=== PATIENT | male | born 1950 | race Caucasian/White ===

== ENCOUNTER 2021-07-18 10:59 | Observation (INO) ==
[2021-07-18 13:17] LABS: Basophils % 0.2 %; Hematocrit 47.4 % (37.5-50.1); Hemoglobin 15.7 g/dL (12.9-16.9); Immature Granulocytes % 1.7 % (0-4); Lymphocytes # 0.5 K/mcL (0.6-4.6); Lymphocytes % 13.3 %; Mean Corpuscular HGB Conc 33.1 g/dL (31.6-35.5); Mean Corpuscular Hemoglobin 29.5 pg (28.0-33.3); Mean Corpuscular Volume 89.1 fL (83.0-100.0); Mean Platelet Volume 9.7 fL (9.4-12.4); Monocytes # 0.3 K/mcL (0.0-1.3); Monocytes % 6.2 %; Neutrophils # 3.2 K/mcL (1.6-8.9); Platelet Count 170 K/mcL (140-400); Red Blood Count 5.32 M/mcL (4.19-5.50); Red Cell Distribution Width 13.4 % (11.5-14.5); Segmented Neutrophils % 78.6 %; White Blood Count 4.1 K/mcL (4.3-11.1)
[2021-07-18 13:39] LABS: Alanine Aminotransferase 21 Units/L (7-52); Albumin/Globulin Ratio 1.2 (1.1-2.2); Alkaline Phosphatase 69 Units/L (34-104); Aspartate Amino Transferase 53 Units/L (13-39); BUN/Creatinine Ratio 24 (6-26); Bilirubin,Direct 0.3 mg/dL (0.0-0.2); Bilirubin,Indirect 0.6 mg/dL (0.0-1.0); Bilirubin,Total 0.9 mg/dL (0.3-1.0); Blood Urea Nitrogen 25 mg/dL (8-23); Calcium 9.1 mg/dL (8.6-10.3); Carbon Dioxide 26 mEq/L (23-29); Chloride 93 mEq/L (98-107); Globulin 3.4 g/dL (2.4-3.5); Glucose 182 mg/dL (70-105); Osmolality,Calculated 283 (280-300); Potassium 3.5 mEq/L (3.5-5.1); Sodium 132 mEq/L (136-145); Total Protein 7.4 g/dL (6.4-8.9); Troponin I 0.05 ng/mL (< 0.04); eGFR For African Americans > 60 (> 60); eGFR For Non-African Americans > 60 (> 60)
[2021-07-18 15:34] LABS: Influenza A PCR Negative (Negative); Influenza B PCR Negative (Negative); Resp. Syncytial Virus PCR Negative (Negative)
[2021-07-18 16:00] LABS: SARS-CoV-2 by PCR (In House) Positive (Negative)
[2021-07-18] MEDS ORDERED: Ondansetron 4 MG/2 ML VIAL IVP PRN (17:20)
[2021-07-18] MEDS ORDERED: Naloxone 0.4 MG/ML INJ IVP PRN (17:20)
[2021-07-18] MEDS ORDERED: D5% in Water 1,000 ML IVC PRN (17:23)
[2021-07-18] MEDS ORDERED: *HR* Dextrose 50 % in Water (Syg) 50 ML SYRINGE IVP PRN (17:23)
[2021-07-18] MEDS ORDERED: Dextrose Gel 15 GM/37.5 ML TUBE PO PRN ×2 (17:23)
[2021-07-18] MEDS ORDERED: Remdesivir 200 MG in 0.9 % Sodium Chloride 100 ML IVPB ONE (17:29)
[2021-07-18 18:30] LABS: C-Reactive Protein 101 mg/L (Less than 10); Lactate Dehydrogenase 559 Units/L (140-271)
[2021-07-18 18:48] LABS: Ferritin 532 ng/mL (20-250)
[2021-07-18] MEDS: levoFLOXacin 750 MG/150 ML 750 MG/150 ML BAG IVPB SCH (18:51)
[2021-07-18] MEDS ORDERED: Ipratropium/Albuterol Neb 3 ML IH SCH (20:00)
[2021-07-18] MEDS: Budesonide/Formoterol 160/4.5 1 PUFF INH IH SCH (20:35)
[2021-07-18] MEDS: Ipratropium 1 PUFF INHALER IH SCH (20:36)
[2021-07-18] MEDS ORDERED: Ipratropium 1 PUFF INHALER IH ONE (21:27)
[2021-07-18] MEDS: Insulin LISPRO 300 UNITS/3 ML VIAL SUBQ SCH (22:03)
[2021-07-19 02:14] LABS: Basophils % 0.6 %; Hematocrit 43.1 % (37.5-50.1); Lymphocytes # 0.5 K/mcL (0.6-4.6); Lymphocytes % 15.6 %; Mean Corpuscular HGB Conc 32.3 g/dL (31.6-35.5); Mean Corpuscular Volume 89.8 fL (83.0-100.0); Mean Platelet Volume 10.1 fL (9.4-12.4); Monocytes # 0.2 K/mcL (0.0-1.3); Monocytes % 6.4 %; Neutrophils # 2.4 K/mcL (1.6-8.9); Platelet Count 174 K/mcL (140-400); Red Cell Distribution Width 13.3 % (11.5-14.5); Segmented Neutrophils % 73.4 %; White Blood Count 3.3 K/mcL (4.3-11.1)
[2021-07-19 02:17] LABS: Hemoglobin 13.9 g/dL (12.9-16.9)
[2021-07-19 02:23] LABS: BUN/Creatinine Ratio 33 (6-26); Blood Urea Nitrogen 27 mg/dL (8-23); Calcium 8.1 mg/dL (8.6-10.3); Carbon Dioxide 22 mEq/L (23-29); Chloride 96 mEq/L (98-107); Glucose 263 mg/dL (70-105); Magnesium 2.1 mg/dL (1.6-2.6); Osmolality,Calculated 288 (280-300); Phosphorous 3.3 mg/dL (2.7-4.5); Potassium 3.4 mEq/L (3.5-5.1); Sodium 132 mEq/L (136-145); eGFR For African Americans > 60 (> 60); eGFR For Non-African Americans > 60 (> 60)
[2021-07-19 02:24] LABS: Albumin 3.4 g/dL (3.5-5.7); Albumin/Globulin Ratio 1.1 (1.1-2.2); Bilirubin,Direct 0.2 mg/dL (0.0-0.2); Bilirubin,Indirect 0.4 mg/dL (0.0-1.0); Bilirubin,Total 0.6 mg/dL (0.3-1.0); Total Protein 6.4 g/dL (6.4-8.9)
[2021-07-19] MEDS: Ipratropium 1 PUFF INHALER IH SCH ×4 (05:05→21:36)
[2021-07-19] MEDS: *HR* Heparin 5,000 UNIT/ML VIAL SQ SCH ×2 (06:31→17:22)
[2021-07-19] MEDS: Budesonide/Formoterol 160/4.5 1 PUFF INH IH SCH ×2 (08:17→21:36)
[2021-07-19] MEDS: Insulin LISPRO 300 UNITS/3 ML VIAL SUBQ SCH ×4 (08:18→17:34)
[2021-07-19] MEDS: lisinopriL 5 MG TABLET PO SCH (08:20)
[2021-07-19] MEDS: Aspirin Enteric Coated 81 MG Tablet PO SCH (08:20)
[2021-07-19] MEDS: levoFLOXacin 750 MG/150 ML 750 MG/150 ML BAG IVPB SCH (08:20)
[2021-07-19] MEDS: Metoprolol XL (24 HR) Succ 25 MG TAB.ER.24H PO SCH (08:20)
[2021-07-19] MEDS ORDERED: Remdesivir 100 MG in 0.9 % Sodium Chloride 100 ML IVPB SCH (18:00)
[2021-07-20 01:43] LABS: Albumin 3.4 g/dL (3.5-5.7); Albumin/Globulin Ratio 1.1 (1.1-2.2); Bilirubin,Direct 0.2 mg/dL (0.0-0.2); Bilirubin,Indirect 0.4 mg/dL (0.0-1.0); Bilirubin,Total 0.6 mg/dL (0.3-1.0); Total Protein 6.4 g/dL (6.4-8.9)
[2021-07-20] MEDS: Ipratropium 1 PUFF INHALER IH SCH ×3 (04:32→16:26)
[2021-07-20] MEDS: *HR* Heparin 5,000 UNIT/ML VIAL SQ SCH (05:26)
[2021-07-20] MEDS: Budesonide/Formoterol 160/4.5 1 PUFF INH IH SCH (08:31)
[2021-07-20] MEDS: Insulin LISPRO 300 UNITS/3 ML VIAL SUBQ SCH ×2 (08:49→11:19)
[2021-07-20] MEDS: levoFLOXacin 750 MG/150 ML 750 MG/150 ML BAG IVPB SCH (08:51)
[2021-07-20] MEDS: Metoprolol XL (24 HR) Succ 25 MG TAB.ER.24H PO SCH (08:51)
[2021-07-20] MEDS: Aspirin Enteric Coated 81 MG Tablet PO SCH (08:51)
[2021-07-20] MEDS: lisinopriL 5 MG TABLET PO SCH (08:51)
[2021-07-20 11:11] VITALS: BP 97/60; PULSE 83; TEMP 98.9; O2SAT 93
== END 2021-07-20 17:48 | disposition home or self-care (01) ==
LOC: 3BNU 10:59 → EMEROOARM 10:59 → 3BNU 18:29
PROVIDERS: ADMIT Internal Medicine; ATTEND Internal Medicine

== ENCOUNTER 2021-07-29 12:49 | Inpatient (IN) ==
[2021-07-29] MEDS ORDERED: Acetaminophen 325 MG TABLET PO PRN (17:15)
[2021-07-29] MEDS ORDERED: Ondansetron 4 MG/2 ML VIAL IVP PRN (17:15)
[2021-07-29] MEDS ORDERED: Dextrose Gel 15 GM/37.5 ML TUBE PO PRN ×2 (17:22)
[2021-07-29] MEDS ORDERED: *HR* Dextrose 50 % in Water (Syg) 50 ML SYRINGE IVP PRN (17:22)
[2021-07-29] MEDS ORDERED: D5% in Water 1,000 ML IVC PRN (17:22)
[2021-07-29] MEDS ORDERED: Insulin DETEMIR 100 UNIT/ML X5UNITS SUBQ SCH (17:30)
[2021-07-29] MEDS: Insulin LISPRO 300 UNITS/3 ML VIAL SUBQ SCH (19:05)
[2021-07-29] MEDS: Ipratropium 1 PUFF INHALER IH SCH ×2 (20:59→23:59)
[2021-07-29] MEDS ORDERED: Insulin LISPRO 300 UNITS/3 ML VIAL SUBQ SCH (21:00)
[2021-07-29] MEDS ORDERED: Insulin LISPRO 300 UNITS/3 ML VIAL SUBQ ONE (21:16)
[2021-07-30] MEDS: Ipratropium 1 PUFF INHALER IH SCH ×6 (04:13→22:35)
[2021-07-30] MEDS ORDERED: *HR* Enoxaparin 100 MG/ML SYRINGE SQ SCH (06:00)
[2021-07-30] MEDS ORDERED: *HR* Enoxaparin 40 MG/0.4 ML SYRINGE SQ SCH (06:00)
[2021-07-30 06:56] LABS: Hemoglobin 17.5 g/dL (12.9-16.9); Mean Corpuscular HGB Conc 33.7 g/dL (31.6-35.5); Mean Corpuscular Hemoglobin 29.7 pg (28.0-33.3); Mean Corpuscular Volume 88.1 fL (83.0-100.0); Mean Platelet Volume 9.9 fL (9.4-12.4); Platelet Count 205 K/mcL (140-400); Red Cell Distribution Width 13.9 % (11.5-14.5); White Blood Count 16.7 K/mcL (4.3-11.1)
[2021-07-30 07:15] LABS: BUN/Creatinine Ratio 48 (6-26); Blood Urea Nitrogen 46 mg/dL (8-23); Carbon Dioxide 22 mEq/L (23-29); Chloride 99 mEq/L (98-107); Glucose 246 mg/dL (70-105); Osmolality,Calculated 300 (280-300); Potassium 3.9 mEq/L (3.5-5.1); Sodium 135 mEq/L (136-145); eGFR For African Americans > 60 (> 60); eGFR For Non-African Americans > 60 (> 60)
[2021-07-30] MEDS ORDERED: Insulin DETEMIR 100 UNIT/ML X5UNITS SUBQ SCH (09:00)
[2021-07-30] MEDS: Furosemide 20 MG/2 ML VIAL IVP SCH (09:24)
[2021-07-30 09:27] LABS: INR 2.3; Prothrombin Time 25.2 Seconds (9.4-12.1)
[2021-07-30 09:31] LABS: Heparin anti-factor XA UFH 1.16 IU/mL (0.30-0.70)
[2021-07-30] MEDS: Cholecalciferol (D-3) 1,000 UNIT (25MCG) TABLET PO SCH (09:33)
[2021-07-30] MEDS: Insulin LISPRO 300 UNITS/3 ML VIAL SUBQ SCH ×5 (09:34→20:33)
[2021-07-30] MEDS ORDERED: TOCILIZUMAB 800 MG in 0.9 % Sodium Chloride 100 ML IVPB ONE (10:00)
[2021-07-30 11:23] LABS: Activated Partial Thrombo Time 42.1 Seconds (26.0-36.0)
[2021-07-30] MEDS: Heparin 25,000UNIT/250ML 1/2NS 25,000 UNIT/250 ML IV.SOLN IVC SCH (11:48)
[2021-07-30] MEDS ORDERED: *HR* Heparin 5,000 UNIT/ML VIAL IVP PRN ×2 (15:00)
[2021-07-30] MEDS ORDERED: Heparin 25,000UNIT/250ML 1/2NS 25,000 UNIT/250 ML IV.SOLN IVC SCH (15:00)
[2021-07-30] MEDS ORDERED: Insulin LISPRO 300 UNITS/3 ML VIAL SUBQ ONE (17:26)
[2021-07-30] MEDS: Insulin DETEMIR 100 UNIT/ML X5UNITS SUBQ SCH (20:32)
[2021-07-31] MEDS: Ipratropium 1 PUFF INHALER IH SCH ×6 (03:52→23:04)
[2021-07-31] MEDS: Heparin 25,000UNIT/250ML 1/2NS 25,000 UNIT/250 ML IV.SOLN IVC SCH (06:39)
[2021-07-31] MEDS: Insulin LISPRO 300 UNITS/3 ML VIAL SUBQ SCH ×4 (09:27→20:37)
[2021-07-31] MEDS: Furosemide 20 MG/2 ML VIAL IVP SCH (09:29)
[2021-07-31] MEDS: Cholecalciferol (D-3) 1,000 UNIT (25MCG) TABLET PO SCH (09:38)
[2021-07-31] MEDS: Insulin DETEMIR 100 UNIT/ML X5UNITS SUBQ SCH ×2 (09:39→20:37)
[2021-07-31 09:46] LABS: Hematocrit 52.4 % (37.5-50.1); Mean Corpuscular HGB Conc 32.4 g/dL (31.6-35.5); Mean Corpuscular Hemoglobin 29.2 pg (28.0-33.3); Mean Platelet Volume 10.1 fL (9.4-12.4); Platelet Count 241 K/mcL (140-400); Red Blood Count 5.82 M/mcL (4.19-5.50); Red Cell Distribution Width 13.9 % (11.5-14.5); White Blood Count 18.7 K/mcL (4.3-11.1)
[2021-07-31 10:08] LABS: BUN/Creatinine Ratio 41 (6-26); Blood Urea Nitrogen 45 mg/dL (8-23); Carbon Dioxide 27 mEq/L (23-29); Chloride 97 mEq/L (98-107); Glucose 123 mg/dL (70-105); Osmolality,Calculated 295 (280-300); Potassium 3.7 mEq/L (3.5-5.1); Sodium 136 mEq/L (136-145); eGFR For African Americans > 60 (> 60); eGFR For Non-African Americans > 60 (> 60)
[2021-07-31] MEDS: Aspirin Enteric Coated 81 MG Tablet PO SCH (12:02)
[2021-08-01] MEDS ORDERED: *HR* LORazepam 2 MG/ML VIAL IVP ONE (01:32)
[2021-08-01] MEDS: Ipratropium 1 PUFF INHALER IH SCH ×5 (04:06→21:03)
[2021-08-01 04:59] LABS: Hematocrit 52.8 % (37.5-50.1); Hemoglobin 17.5 g/dL (12.9-16.9); Mean Corpuscular HGB Conc 33.1 g/dL (31.6-35.5); Mean Corpuscular Hemoglobin 29.4 pg (28.0-33.3); Mean Corpuscular Volume 88.6 fL (83.0-100.0); Mean Platelet Volume 10.1 fL (9.4-12.4); Platelet Count 232 K/mcL (140-400); Red Blood Count 5.96 M/mcL (4.19-5.50); Red Cell Distribution Width 14.1 % (11.5-14.5); White Blood Count 19.1 K/mcL (4.3-11.1)
[2021-08-01 05:19] LABS: BUN/Creatinine Ratio 44 (6-26); Blood Urea Nitrogen 51 mg/dL (8-23); Calcium 9.1 mg/dL (8.6-10.3); Carbon Dioxide 26 mEq/L (23-29); Chloride 97 mEq/L (98-107); Glucose 104 mg/dL (70-105); Osmolality,Calculated 294 (280-300); Potassium 3.6 mEq/L (3.5-5.1); Sodium 135 mEq/L (136-145); eGFR For African Americans > 60 (> 60); eGFR For Non-African Americans > 60 (> 60)
[2021-08-01] MEDS: *HR* Enoxaparin 40 MG/0.4 ML SYRINGE SQ SCH (05:41)
[2021-08-01] MEDS: Insulin LISPRO 300 UNITS/3 ML VIAL SUBQ SCH ×4 (09:02→21:25)
[2021-08-01] MEDS: Aspirin Enteric Coated 81 MG Tablet PO SCH (09:03)
[2021-08-01] MEDS: Cholecalciferol (D-3) 1,000 UNIT (25MCG) TABLET PO SCH (09:03)
[2021-08-01] MEDS: Furosemide 20 MG/2 ML VIAL IVP SCH (09:10)
[2021-08-01] MEDS: Insulin DETEMIR 100 UNIT/ML X5UNITS SUBQ SCH ×2 (09:13→21:25)
[2021-08-01] MEDS: Magic Mouthwash 10 ML UD Cup PO SCH ×2 (13:25→15:55)
[2021-08-01] MEDS: Metoprolol XL (24 HR) Succ 25 MG TAB.ER.24H PO SCH (15:55)
[2021-08-01] MEDS ORDERED: Furosemide 40 MG/4 ML VIAL IVP ONE (18:05)
[2021-08-02] MEDS: Ipratropium 1 PUFF INHALER IH SCH ×7 (00:09→23:49)
[2021-08-02] MEDS: *HR* Enoxaparin 40 MG/0.4 ML SYRINGE SQ SCH (06:14)
[2021-08-02] MEDS ORDERED: Isovue-370 500 ML BOTTLE IVP ONE (07:42)
[2021-08-02] MEDS ORDERED: Lidocaine -MPF 1% 5 ML AMPUL INFILT ONE (07:48)
[2021-08-02] MEDS: Insulin LISPRO 300 UNITS/3 ML VIAL SUBQ SCH ×4 (08:26→20:04)
[2021-08-02] MEDS: Cholecalciferol (D-3) 1,000 UNIT (25MCG) TABLET PO SCH (08:27)
[2021-08-02] MEDS: Magic Mouthwash 10 ML UD Cup PO SCH ×2 (08:27→11:34)
[2021-08-02] MEDS: Aspirin Enteric Coated 81 MG Tablet PO SCH (08:27)
[2021-08-02] MEDS: Metoprolol XL (24 HR) Succ 25 MG TAB.ER.24H PO SCH (08:27)
[2021-08-02] MEDS: Furosemide 20 MG/2 ML VIAL IVP SCH (08:28)
[2021-08-02] MEDS ORDERED: *HR* Enoxaparin 100 MG/ML SYRINGE SQ SCH (09:00)
[2021-08-02] MEDS ORDERED: Fluconazole 400 MG/200 ML 400 MG/200 ML BAG IVPB ONE (09:43)
[2021-08-02] MEDS ORDERED: Chloraseptic Spray 177 ML BOTTLE MM PRN (10:04)
[2021-08-02] MEDS: Insulin DETEMIR 100 UNIT/ML X5UNITS SUBQ SCH ×2 (10:30→20:56)
[2021-08-02] MEDS ORDERED: Lidocaine Viscous Oral Soln 15 ML SOLUTION MM PRN (11:44)
[2021-08-02] MEDS: Nystatin SUSP 5 ML UD.LIQ PO SCH ×3 (12:56→20:58)
[2021-08-02] MEDS ORDERED: Midazolam HCl 50 MG/100 ML IV.SOLN IVC ONE (14:50)
[2021-08-02] MEDS: Midazolam HCl 50 MG/100 ML IV.SOLN IVC SCH (15:25)
[2021-08-02] MEDS: FentaNYL (PF) 1,000 MCG/100 ML IV.SOLN IVC SCH ×2 (15:26→21:32)
[2021-08-02] MEDS: Cisatracurium 200 MG in 0.9 % Sodium Chloride 180 ML IVC SCH (15:26)
[2021-08-02] MEDS: Norepinephrine 4 MG/254 ML IV.SOLN IVC SCH ×2 (15:28→22:18)
[2021-08-02] MEDS: Pantoprazole 40 MG VIAL IVP SCH (19:14)
[2021-08-02 19:34] LABS: Mean Platelet Volume 10.7 fL (9.4-12.4)
[2021-08-02 19:35] LABS: Hemoglobin 18.1 g/dL (12.9-16.9); Mean Corpuscular HGB Conc 32.8 g/dL (31.6-35.5); Mean Corpuscular Hemoglobin 30.1 pg (28.0-33.3); Mean Corpuscular Volume 91.7 fL (83.0-100.0); Platelet Count 212 K/mcL (140-400); Red Blood Count 6.02 M/mcL (4.19-5.50); Red Cell Distribution Width 13.9 % (11.5-14.5); White Blood Count 25.9 K/mcL (4.3-11.1)
[2021-08-02 19:36] LABS: Hematocrit 55.2 % (37.5-50.1)
[2021-08-02] MEDS ORDERED: Artificial Tears SOLN 15 ML BOTTLE BOTH EYES PRN (20:05)
[2021-08-02 20:17] LABS: INR 1.6; Prothrombin Time 17.5 Seconds (9.4-12.1)
[2021-08-02 20:20] LABS: Activated Partial Thrombo Time 35.3 Seconds (26.0-36.0); Heparin anti-factor XA UFH 1.03 IU/mL (0.30-0.70)
[2021-08-02] MEDS ORDERED: 0.9 % Sodium Chloride 1,000 ML ONE (20:30)
[2021-08-02] MEDS: Chlorhexidine Rinse 15 ML MOUTHWASH MM SCH (20:56)
[2021-08-02] MEDS ORDERED: Heparin 25,000UNIT/250ML 1/2NS 25,000 UNIT/250 ML IV.SOLN IVC SCH (21:00)
[2021-08-02] MEDS ORDERED: *HR* Heparin 5,000 UNIT/ML VIAL IVP PRN ×2 (21:00)
[2021-08-02] MEDS ORDERED: *HR* Succinylcholine 200 MG/10 ML VIAL IVP ONE (21:19)
[2021-08-02] MEDS ORDERED: *HR* Midazolam HCl 5 MG/5 ML VIAL IVP ONE (21:19)
[2021-08-02] MEDS ORDERED: *HR* Etomidate 20 MG/10 ML AMPUL IVP ONE (21:19)
[2021-08-03] MEDS: Artificial Tears SOLN 15 ML BOTTLE BOTH EYES SCH ×5 (00:40→16:29)
[2021-08-03 01:09] LABS: ABG Base Excess -6 mEq/L (-2 to 3); ABG HCO3 24 mEq/L (21-27); ABG Oxygen Saturation 93 % (95-98); ABG PCO2 61 mmHg (35-45); ABG PH 7.19 pH Units (7.32-7.45); ABG PO2 86 mmHg (85-104); ABG TCO2 25 mEq/L (20-26); Blood Gas Modality AF; Blood Gas VT 420 cc
[2021-08-03] MEDS: Norepinephrine 4 MG/254 ML IV.SOLN IVC SCH ×6 (02:35→16:36)
[2021-08-03] MEDS: Cisatracurium 200 MG in 0.9 % Sodium Chloride 180 ML IVC SCH ×2 (02:36→15:17)
[2021-08-03] MEDS: Ipratropium 1 PUFF INHALER IH SCH ×4 (03:22→15:55)
[2021-08-03 04:03] LABS: ABG Base Excess -9 mEq/L (-2 to 3); ABG HCO3 21 mEq/L (21-27); ABG Oxygen Saturation 94 % (95-98); ABG PCO2 57 mmHg (35-45); ABG PH 7.17 pH Units (7.32-7.45); ABG PO2 88 mmHg (85-104); ABG TCO2 23 mEq/L (20-26); Blood Gas Modality AF; Blood Gas VT 420 cc
[2021-08-03 04:21] LABS: Magnesium 2.4 mg/dL (1.6-2.6); Phosphorous 9.8 mg/dL (2.7-4.5)
[2021-08-03] MEDS: Midazolam HCl 50 MG/100 ML IV.SOLN IVC SCH (04:38)
[2021-08-03] MEDS: FentaNYL (PF) 1,000 MCG/100 ML IV.SOLN IVC SCH ×3 (04:38→19:48)
[2021-08-03] MEDS ORDERED: Calcium Chloride 1,000 MG in 0.9 % Sodium Chloride 100 ML IVPB ONE (05:00)
[2021-08-03] MEDS: Pantoprazole 40 MG VIAL IVP SCH (06:17)
[2021-08-03 07:01] LABS: Calcium 7.9 mg/dL (8.6-10.3); Potassium 4.2 mEq/L (3.5-5.1)
[2021-08-03 07:15] LABS: Hematocrit 54.2 % (37.5-50.1); Hemoglobin 17.7 g/dL (12.9-16.9); Mean Corpuscular HGB Conc 32.7 g/dL (31.6-35.5); Mean Corpuscular Hemoglobin 30.2 pg (28.0-33.3); Mean Corpuscular Volume 92.5 fL (83.0-100.0); Mean Platelet Volume 10.9 fL (9.4-12.4); Platelet Count 269 K/mcL (140-400); Red Blood Count 5.86 M/mcL (4.19-5.50); Red Cell Distribution Width 13.7 % (11.5-14.5)
[2021-08-03 08:10] LABS: White Blood Count 36.6 K/mcL (4.3-11.1)
[2021-08-03 08:13] LABS: Lymphocytes # 1.8 K/mcL (0.6-4.6); Monocytes # 0.4 K/mcL (0.0-1.3)
[2021-08-03 08:14] LABS: Platelet Estimate Normal (Normal)
[2021-08-03] MEDS ORDERED: Vancomycin 1,500 MG/265 ML IV.SOLN IVPB ONE (08:20)
[2021-08-03] MEDS ORDERED: Aspirin 81 MG TAB.CHEW GTUBE SCH (09:00)
[2021-08-03] MEDS ORDERED: Fluconazole 100 MG TABLET PO SCH (09:00)
[2021-08-03] MEDS: Furosemide 20 MG/2 ML VIAL IVP SCH (09:41)
[2021-08-03] MEDS: Cholecalciferol (D-3) 1,000 UNIT (25MCG) TABLET PO SCH (09:41)
[2021-08-03] MEDS: Nystatin SUSP 5 ML UD.LIQ PO SCH (09:42)
[2021-08-03] MEDS: Chlorhexidine Rinse 15 ML MOUTHWASH MM SCH (09:42)
[2021-08-03] MEDS: Insulin DETEMIR 100 UNIT/ML X5UNITS SUBQ SCH (09:44)
[2021-08-03] MEDS: Insulin LISPRO 300 UNITS/3 ML VIAL SUBQ SCH (10:34)
[2021-08-03] MEDS ORDERED: Insulin LISPRO 300 UNITS/3 ML VIAL SUBQ SCH (12:00)
[2021-08-03] MEDS ORDERED: Vasopressin 40 UNIT in D5% in Water 100 ML IVC SCH (13:30)
[2021-08-03] MEDS ORDERED: Phenylephrine 10 MG in 0.9 % Sodium Chloride 250 ML IVC SCH (14:00)
[2021-08-03 14:45] LABS: ABG Base Excess -11 mEq/L (-2 to 3); ABG HCO3 23 mEq/L (21-27); ABG Oxygen Saturation 88 % (95-98); ABG PCO2 87 mmHg (35-45); ABG PH 7.03 pH Units (7.32-7.45); ABG PO2 81 mmHg (85-104); ABG TCO2 26 mEq/L (20-26); Blood Gas VT 420 cc
[2021-08-03] MEDS ORDERED: Phenylephrine 50 MG in 0.9 % Sodium Chloride 250 ML IVC SCH (15:30)
[2021-08-03] MEDS ORDERED: Sodium Bicarbonate 150 MEQ in Water for inj. (sterile) 1,000 ML IVC SCH (16:22)
[2021-08-03 16:51] LABS: ABG Base Excess -5 mEq/L (-2 to 3); ABG HCO3 26 mEq/L (21-27); ABG Oxygen Saturation 87 % (95-98); ABG PCO2 71 mmHg (35-45); ABG PH 7.17 pH Units (7.32-7.45); ABG PO2 69 mmHg (85-104); ABG TCO2 28 mEq/L (20-26); Blood Gas VT 500 cc
[2021-08-03] MEDS ORDERED: Norepinephrine 16 MG in 0.9 % Sodium Chloride 500 ML IVC SCH (17:00)
[2021-08-03] MEDS ORDERED: *HR* LORazepam 2 MG/ML VIAL IVP PRN (18:57)
[2021-08-03 19:49] VITALS: TEMP 97.9
[2021-08-03 20:20] VITALS: PULSE 147; O2SAT 76
[2021-08-03 22:30] VITALS: BP 50/44
[2021-08-04] MEDS ORDERED: Dexamethasone Sodium Phos/PF 10 MG/ML VIAL IVP SCH (09:00)
== END 2021-08-03 21:20 | disposition expired | DRG 208 ==
LOC: 2NNU → SUATTDRO 18:20 → ICNU 08-02 17:06
PROVIDERS: ADMIT Family Medicine; ATTEND Internal Medicine